=== PATIENT | male | born 1945 | race Caucasian/White ===

== ENCOUNTER 2020-04-11 11:02 | Inpatient (IN) | payer MEDICARE, SELFPAY ==
[2020-04-11] VITALS (22 sets, daily range): BP systolic 121–147; BP diastolic 66–88; PULSE 73–107; RESP 16–28; TEMP 35.9–39.1; O2SAT 93–99; BMI 24.4
--- NOTE | ~2020-04-11 | CT_ITS ---
EXAMINATION: CT cervical spine wo con DATE: 04/11/2020 19:36 INDICATION: Unwitnessed fall. Neck pain. TECHNIQUE: Computed tomography (CT) of the cervical spine was performed without intravenous contrast. The dose-length product was 474 mGy-cm. Automated exposure control and iterative reconstruction tech nique were employed. COMPARISON: None FINDINGS: There are degenerative changes at all cervical spine levels except C2-3 characterized by di sc narrowing, endplate hypertrophy as well as uncinate hypertrophy. There is right facet hypertrophy at C4-5. Lung apices are normal. Odontoid process is normal. No paraspinal soft tissue abnormality. N o acute fracture or traumatic malalignment. Small mastoid effusion on the left. There is carotid athe rosclerosis. IMPRESSION: 1. No acute abnormality of the cervical spine. 2: Moderate cervical spondylosis. Reviewed, dictated and finalized at location A. O PHOTOGRAPHER
--- NOTE | ~2020-04-11 | XR_ITS ---
EXAMINATION: XR chest 1V portable EXAM DATE: 04/11/2020 11:25 INDICATION: Muscle aches, shortness of breath, dizziness, COVID+. TECHNIQUE: Portable AP frontal chest x-ray was obtained. Comparison is made to prior examination from 12/04/2016. FINDINGS: Scattered mild to moderate amount of left-sided and smaller amount of right basilar acute a irspace disease, probably COVID pneumonia. There is no pneumothorax suspected. There are no pleural e ffusions. Cardiomediastinal silhouette is normal. There are mild bony degenerative changes. IMPRESSION: Small to moderate left, small right basilar acute airspace disease, clinical correlation . Reviewed, dictated and finalized at location A. OR MAINTENANCE TECHNICIAN IMPRESSION: Small to moderate left, small right basilar acute airspace disease , clinical correlation.
--- NOTE | ~2020-04-11 | XR_ITS ---
EXAMINATION: XR chest 1V portable DATE: 04/13/2020 06:20 INDICATION: Pneumonia TECHNIQUE: frontal view of the chest was obtained. COMPARISON: Chest radiograph dated 04/11/2020 FINDINGS: No significant change in airspace opacities in the left mid and lower lung zones that the medial righ t mid and lower lung zones. No pleural effusion or pneumothorax. The cardiomediastinal silhouette is normal. 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 IMPRESSION: 1. No significant interval change in opacities in the bilateral mid and lower lung zones, left greate r than right represent pneumonia and/or atelectasis. Reviewed, dictated and finalized at location A. CLEANER IMPRESSION: 1. No significant interval change in opacities in the bilateral mid and lower l philipp zones, left greater than right represent pneumonia and/or atelectasis.
--- NOTE | ~2020-04-11 | CT_ITS ---
EXAMINATION: CT brain wo con DATE: 04/11/2020 19:36 INDICATION: Unwitnessed fall. TECHNIQUE: Computed tomography (CT) of the head was performed without intravenous contrast. The dose- length product was 605.33 mGy-cm. The mA was adjusted according to patient size. Iterative reconstruc tion technique was employed. COMPARISON: None FINDINGS: Generalized atrophy. There are scattered mild periventricular and subcortical white matter changes, most likely related to small vessel ischemic disease (microangiopathy). Chronic left cerebel lar infarction. No acute intracranial hemorrhage, infarction, mass or mass effect. Paranasal sinuses and mastoids are pneumatized. No depressed skull fractures. Midline sagittal images are unremarkable. IMPRESSION: 1. No acute intracranial abnormality. 2: Chronic left cerebellar infarction. 3: Chronic age-related findings. Reviewed, dictated and finalized at location A. E CUTTING MACHINE OPERATOR
--- NOTE | 2020-04-11 11:12 | ECG_ITS ---
Measurements Intervals [place] Rate: 96 P: 42 MT: 155 QRS: 47 QRSD: 101 T: 25 QT: 320 QTc: 405 Interpretive Statements SINUS RHYTHM DELAYED PRECORDIAL R/S TRANSITION CONSIDER INFERIOR INFARCT, AGE INDETERMINATE BASELINE ARTIFACT- I, III, AVL, V2 ABNORMAL ECG Electronically Signed On 04-11-2020 15:07:33 FEED MIXER HELPER by Preston Ahumada D.O.
--- NOTE | 2020-04-11 11:12 | ED.SOB ---
HPI - SOB/Dyspnea General Chief Complaint: Unspecified Stated Complaint: covid +, sob Time Seen by Provider: 04/11/20 11:12 Source: patient Mode of arrival: ambulatory Limitations: no limitations History of Present Illness HPI Narrative: Patient is a 74-year-old male who presents for evaluation in the setting of a recent Covid positive test. Patient states that his family wanted him to get checked out. Patient states he was tested because he had been having muscle pain over the past week, noticed especially when he would awaken in the morning. Reports dry cough with mild chest pain and shortness of breath. He denies fever, chills, loss of sense of taste or smell, abdominal pain, vomiting or diarrhea. Patient is unsure who his sick contact was. Patient states that his children kept bothering him to go to the ER. Patient denies focal weakness, but states he is sore all over. He has been ambulatory, but states it is more difficult than normal for him because of the pain. Patient is not taking any anti-inflammatories. Pt states chest pain is dull, but has been present for a long time. He denies worsening chest pain today. He states he is mostly short of breath when he walks. He denies leg swelling or calf pain. Related Data Home Medications Medication Instructions Recorded Confirmed atorvastatin 04/11/20 04/11/20 metformin mg PO 04/11/20 tamsulosin mg PO 04/11/20 Allergies Allergy/AdvReac Type Severity Reaction Status Date / Time No Known Allergies Allergy Verified 04/11/20 11:50 Review of Systems Review of Systems: Narrative: CONSTITUTIONAL: Denies fever, chills, or sweats. EYES: Denies visual changes ENT: Denies rhinorrhea, congestion, sore throat, or otalgia. CARDIOVASCULAR: Denies chest pain, palpitations, or edema. RESPIRATORY: Reports dry cough without shortness of breath GASTROINTESTINAL: Denies abdominal pain, nausea, vomiting, or diarrhea. GENITOURINARY: Denies dysuria or hematuria. SKIN: Denies rash or itching. MUSCULOSKELETAL: Denies back pain, joint pain, reports myalgias NEUROLOGIC: Denies headache, numbness, or weakness. [facility] Past Medical History Medical History (Updated 04/11/20 @ 13:46 by Claribel Cerda PA-C) Benign prostatic hyperplasia Hyperlipidemia Hypertension Prostate cancer (~2007) Type 2 diabetes mellitus Surgical History Surgical History (Updated 04/11/20 @ 13:35 by Claribel Cerda PA-C) History of prostatectomy (~2007) Family History Family History (Updated 04/11/20 @ 13:35 by Claribel Cerda PA-C) Father Coronary artery disease Social History Social History (Updated 04/11/20 @ 13:36 by Claribel Cerda PA-C) Social History: The patient lives alone in [place], [place]. Lifelong nonsmoker. No alcohol or illicit substance use. Exam Narrative: Exam Narrative: GENERAL: Awake, alert, conversant HEAD: Normocephalic, atraumatic. EYES: PERRLA and EOMI. ENT: Nares clear, no rhinorrhea or epistaxis. Mucous membranes moist. NECK: Supple. CHEST: No respiratory distress, breathing even and non labored, no chest wall pain HEART: Regular rate, sinus rhythm ABDOMEN:Non distended, non tender in all 4 quadrants EXTREMITIES: Normal range of motion. No edema. SKIN: Warm, dry, no rash. NEURO:No focal deficits. Alert and oriented x3 Course Vital Signs Vital signs: Vital Signs Pulse Rate 106 H 04/11/20 11:11 Respiratory Rate 23 H 04/11/20 11:11 Blood Pressure 141/83 H 04/11/20 11:11 Pulse Oximetry 96 04/11/20 11:11 Temperature 36.5 C 04/11/20 11:13 Pulse Rate 97 04/11/20 11:46 Respiratory Rate 22 H 04/11/20 11:46 Blood Pressure 126/80 04/11/20 11:46 Pulse Oximetry 96 04/11/20 11:46 MDM - SOB/Dyspnea MDM Narrative Medical decision making narrative: Patient presented for evaluation of muscle pain, chest pain, shortness of breath with exertion in the setting of a known Covid infection. The time of assessment, patient
[2020-04-11 11:37] LABS: Basophils Percent Auto 0.1 % (0.2-1.2); Hematocrit 46.3 % (42.0-52.0); Hemoglobin 16.1 g/dL (14.0-18.0); Immature Granulocyte Absolute 0.06 K/mm3 (0.00-0.031); Immature Granulocyte Percent A 0.6 % (0-0.5); Lymphocytes Percent Auto 6.5 % (18.3-44.2); Mean Corpuscular HGB Conc 34.8 g/dl (32-36); Mean Corpuscular Hemoglobin 30.8 pg (26-34); Mean Corpuscular Volume 88.7 fl (80-100); Mean Platelet Volume 10.4 fl (7.4-10.4); Monocytes Absolute Auto 0.6 K/mm3 (0.1-0.6); Monocytes Percent Auto 5.8 % (2.6-8.5); Neutrophils Absolute Auto 9.4 K/mm3 (1.3-6.7); Platelet Count Result 262 k/mm3 (150-375); Red Blood Count 5.22 M/mm3 (4.6-6.20); Red Cell Distribution Width 13.5 % (11.5-14.5); White Blood Count 10.8 K/mm3 (4.5-10.0)
[2020-04-11 11:47] LABS: Prothrombin Time 13.3 Seconds (11.1-14.7)
[2020-04-11 11:48] LABS: Partial Thromboplastin Time 33.1 SECONDS (22.3-36.8)
[2020-04-11 12:14] LABS: Alanine Aminotransferase 28 U/L (4-50); Albumin Level 3.6 g/dL (3.5-5.1); Alkaline Phosphatase 103 U/L (38-126); Anion Gap 12 mmol/L (8-16); Aspartate Amino Transferase 90 U/L (17-59); Bilirubin,Total 1.2 mg/dL (0.2-1.3); Blood Urea Nitrogen 30 mg/dL (9-20); Calcium 9.2 mg/dL (8.4-10.2); Carbon Dioxide 20 mmol/L (22-30); Chloride 103 mmol/L (98-107); Estimated CRCL calculation 46 ml/min; Estimated Glomerular Filt Rate 54; Glucose 137 mg/dL (75-110); Potassium 4.5 mmol/L (3.4-5.0); Sodium 135 mmol/L (137-145)
[2020-04-11 12:29] LABS: NT Pro B Type Natriuretic Pept 162 PG/ML (5-100); Troponin I 0.037 ng/mL (0.000-0.034)
[2020-04-11 13:16] LABS: Creatine Kinase 2406 U/L (55-170)
--- NOTE | 2020-04-11 13:17 | PC.NURSE ---
SBAR faxed to room.
--- NOTE | 2020-04-11 13:59 | PC.NURSE ---
Attempt to call report to IMU. Per Linda RN is unavailable to get report at the moment, she is looking at the SBAR.
--- NOTE | 2020-04-11 14:20 | PC.NURSE ---
Addendum entered by Albert Adams RN 04/11/20 14:55: Pt given blankets for comfort. Oral temp 98.1. Original Note: In to start IVF, note that the patient has involuntary tremors, states I get like this when I'm cold . Note pt is incontinent of urine. Pt states I forgot there was a call her there . Pt remains A/O x3.
[2020-04-11] MEDS: SODIUM CHLORIDE 0.9% IV 1,000 ML 999 ML IV CONT (14:29)
--- NOTE | 2020-04-11 14:30 | PC.NURSE ---
Report to Romina in IMU, requests that troponin be drawn prior to the patient coming to the floor.
[2020-04-11 14:55] LABS: Glucose Point of Care 109 (65-105)
--- NOTE | 2020-04-11 15:28 | ADMGEN ---
This patient, Tucker Rosado, was admitted to IMU Room 213-01 on 04/11/2020 at 1511. Patient/family oriented to hospital policies and general routines including ID bracelet, bed and alarms, visiting hours, pain management, procedures, bathroom and other care routines, personal items, smoking policy, room service/diet, and visiting hours. Information on how to activate the Rapid Response Team has been discussed. Patient/Family are encouraged to report perceived risks to care and to ask questions if they do not understand what they are told or what they should do. Report received from Albert MATTHEWS in ED.
--- NOTE | 2020-04-11 15:30 | PM.IMHP ---
H&P: HPI History of Present Illness Date/Time: 04/11/20 15:30 Chief Complaint: ?COVID positive.? Narrative: Tucker Rosado is a 74-year-old male with hypertension, hyperlipidemia, diabetes, benign prostatic hyperplasia, and history of prostate cancer who presented to the emergency department earlier today via private vehicle from home because his family members wanted him ?to get checked out? after he was informed that he was COVID positive today. He has had symptoms for about a week including dry cough, shortness of breath, and diffuse muscle aches, which seems to be his most predominant symptom. Workup in the emergency department did show findings of pneumonia felt to be associated to COVID as well as a slight troponin elevation and elevated total CK level. He was admitted to the IMU in this setting, and not long prior to my arrival to the room he was found sitting down on the floor, reporting to the nurse that he had lost his balance and fell onto his buttocks. Family members report he has had ?trouble walking a straight line down the hallway? for approximately 1 month however has not had any falls prior to today. He denies injury in the fall and states there was no head trauma or loss of consciousness. On exam I did not see any injuries. He denies feeling feverish however his temperature is currently 102.3, and he seems to be a bit confused (consistently trying to get a bed) yet he is alert and oriented x4. He denies headache, neck ache, sinus congestion, sore throat, nausea, vomiting, and diarrhea. Review of Systems Review of Systems: Narrative: Twelve systems were reviewed with pertinent positives and negatives as per HPI. No known exposure to COVID-19. He apparently lives at home with his children and he states that they have not been ill. No chest pain or pleuritic pain. He denies anosmia and dysgeusia. Except as documented, all other systems were reviewed and are negative. [facility] Past Medical History Medical History (Updated 04/11/20 @ 22:17 by Claribel Cerda PA-C) Benign prostatic hyperplasia Hyperlipidemia Hypertension Prostate cancer (~2007) Type 2 diabetes mellitus Hemoglobin was 6 0.4% on 04/11/2020. Surgical History Surgical History (Updated 04/11/20 @ 13:35 by Claribel Cerda PA-C) History of prostatectomy (~2007) Family History Family History Father Coronary artery disease Social History Social History (Updated 04/11/20 @ 22:17 by Claribel Cerda PA-C) Social History: The patient lives in [place], [place]. He tells me he lives with his children. Retired from working for the [employer] for 41 years. Lifelong nonsmoker. No alcohol or illicit substance use. His daughter Мария Medina is his healthcare power of admitted attorneys and he is listed as a full code. Smoking status: Never smoker Second hand tobacco smoke exposure: No Alcohol intake: never Substance use: never Gender identity (if verbalized by the patient): Male Spiritual care concerns: No Meds Home Medications and Allergies Home Medications Medication Instructions Recorded Confirmed Type atorvastatin 20 mg PO HS 04/11/20 04/11/20 History metformin 500 mg PO TID 04/11/20 04/11/20 History tamsulosin 0.4 mg PO HS 04/11/20 04/11/20 History Allergies Allergy/AdvReac Type Severity Reaction Status Date / Time No Known Allergies Allergy Verified 04/11/20 16:27 Vital Signs Vital Signs - 24 hr 04/11/20 11:11 04/11/20 11:13 04/11/20 11:16 Temperature 97.7 F Pulse Rate 106 H 95 96 Respiratory Rate 23 H 22 H 25 H Blood Pressure 141/83 H 141/83 H 136/73 Pulse Oximetry 96 95 04/11/20 11:17 04/11/20 11:31 04/11/20 11:46 Temperature Pulse Rate 97 97 97 Respiratory Rate 25 H 22 H Blood Pressure 121/87 126/80 Pulse Oximetry 96 Exam Narrative: Exam Narrative: General: Mildly ill-appearing elderly male sitting up in bed. Inez
[2020-04-11 16:31] LABS: Hemoglobin A1C 6.4 % (<5.7)
[2020-04-11 16:55] LABS: CRP 8.2 mg/dL (<1.0)
[2020-04-11 17:06] LABS: Glucose Point of Care 109 (65-105)
[2020-04-11 18:34] LABS: Creatine Kinase 2332 U/L (55-170)
[2020-04-11] MEDS: SODIUM CHLORIDE 0.9% IV 1,000 ML 80 ML IV CONT (18:39)
[2020-04-11] MEDS: ACETAMINOPHEN 325 MG TABLET 650 MG PO (20:09)
[2020-04-11 20:22] LABS: Glucose Point of Care 121 (65-105)
[2020-04-11 21:47] LABS: Add Urine Microscopic? YES; Appearance Urine Clear (Clear); Bacteria Urine Trace /hpf; Bilirubin Urine Negative (Negative); Blood Urine 1+ (Negative); Color Urine Yellow (Yellow); Glucose Urine UA Negative (Negative); Ketones Urine Trace mg/dL (Negative); Leukocyte Esterase Ur Negative LEU/UL (Negative); Mucus Urine Rare /lpf; Nitrate Urine Negative (Negative); Protein Urine 2+ mg/dL (Negative); RBC Urine 0-2 /hpf (0-2); Specific Grav Ur 1.018 (1.001-1.035); Urobilinogen Urine Negative mg/dL (<2.0); WBC Urine 0-3 /hpf
[2020-04-11] MEDS: TAMSULOSIN HCL 0.4 MG CAPSULE PO (21:54)
[2020-04-12] VITALS (9 sets, daily range): BP systolic 121–152; BP diastolic 68–80; PULSE 70–96; RESP 12–20; TEMP 35.9–37.4; O2SAT 94–98
[2020-04-12 06:12] LABS: Hematocrit 38.7 % (42.0-52.0); Hemoglobin 13.6 g/dL (14.0-18.0); Mean Corpuscular HGB Conc 35.1 g/dl (32-36); Mean Corpuscular Hemoglobin 31.2 pg (26-34); Mean Corpuscular Volume 88.8 fl (80-100); Mean Platelet Volume 11.4 fl (7.4-10.4); Platelet Count Result 234 k/mm3 (150-375); Red Blood Count 4.36 M/mm3 (4.6-6.20); Red Cell Distribution Width 13.6 % (11.5-14.5); White Blood Count 8.8 K/mm3 (4.5-10.0)
[2020-04-12 06:13] LABS: Alanine Aminotransferase 27 U/L (4-50); Albumin Level 3.1 g/dL (3.5-5.1); Alkaline Phosphatase 86 U/L (38-126); Anion Gap 9 mmol/L (8-16); Aspartate Amino Transferase 83 U/L (17-59); Bilirubin,Total 0.9 mg/dL (0.2-1.3); Blood Urea Nitrogen 28 mg/dL (9-20); Calcium 8.4 mg/dL (8.4-10.2); Carbon Dioxide 19 mmol/L (22-30); Chloride 108 mmol/L (98-107); Creatine Kinase 2024 U/L (55-170); Estimated CRCL calculation 54 ml/min; Estimated Glomerular Filt Rate > 60; Glucose 106 mg/dL (75-110); Magnesium 2.4 mg/dL (1.6-2.3); Sodium 136 mmol/L (137-145)
[2020-04-12] MEDS: ASPIRIN 81 MG CHEWABLE TABLET PO (08:20)
--- NOTE | 2020-04-12 08:37 | PM.IMPN ---
Progress Note: A&P Assessment and Plan (1) Pneumonia due to COVID-19 virus: Code(s): U07.1 - COVID-19; J12.89 - Other viral pneumonia Status: Acute (2) Rhabdomyolysis: Code(s): M62.82 - Rhabdomyolysis Status: Acute (3) Elevated troponin: Code(s): R77.8 - Other specified abnormalities of plasma proteins Status: Acute (4) Hypertension: Code(s): I10 - Essential (primary) hypertension Status: Acute (5) Hyperlipidemia: Code(s): E78.5 - Hyperlipidemia, unspecified Status: Acute (6) Type 2 diabetes mellitus: Code(s): E11.9 - Type 2 diabetes mellitus without complications Status: Acute (7) Benign prostatic hyperplasia: Code(s): N40.0 - Benign prostatic hyperplasia without lower urinary tract symptoms Status: Acute Additional Plan The patient is being admitted to the hospitalist service for evaluation of elevated troponin and creatinine kinase. He has had muscle aches for a week and tested positive for COVID-19 today and I assume he probably has developed rhabdomyolysis secondary to viral myopathy. At this time his renal function is stable. Proceed with cautious IV fluid rehydration with close monitoring of volume status as we do not want to over hydrate him in the setting of COVID infection. So too I am assuming that his troponins are elevated in the setting of COVID as he is not having any chest pain. Trend troponins to peak and obtain echocardiogram. Blood pressures were reviewed and they are stable. Metformin on hold while hospitalized. Initiate sliding scale insulin, Accu-Cheks, and hypoglycemic protocol. Check hemoglobin A1c. Will continue current treatment at present time. Will repeat chest x-ray. Will repeat CPK and troponin. Will start IV antibiotics. Subjective Date/time seen: 04/12/20 08:37 Patient was seen during the morning rounds today. Patient has by shortness of breath. Patient denies any chest pain. Patient denies any nausea vomiting or diarrhea. Patient is requiring very little oxygen. Mood stable. Review of Systems Review of Systems: All systems reviewed & are unremarkable except as noted in HPI and below (the history and physical exam) Exam Narrative: Exam Narrative: General: Mildly ill-appearing elderly male sitting up in bed. Weight: 79.5 kg. BMI: 24.4. HEENT: Normocephalic, atraumatic. PERRL, EOMI. Sclerae anicteric. Mucous membranes tacky. Neck: Supple. No JVD. Respiratory: Lungs are clear to auscultation bilaterally. Cardiovascular: Regular rate and rhythm with S1-S2. Gastrointestinal: Abdomen is soft, nontender, and nondistended with positive bowel sounds. Skin: Warm and dry. Red patch in the right antecubital. Extremities: No cyanosis, clubbing, or edema. Radial and pedal pulses intact. Neurological: Alert and oriented x4. Cranial nerves 2-12 are grossly intact. Fine tremors of the hands, which he states is chronic. Speech is clear. No facial asymmetry. No gross focal deficits to casual conversation. Patient was assisted to the bed after he was helped up from the floor, and he required 2 person assistance and was unsteady on his feet. Psychiatric: Pleasant and cooperative. Although alert and oriented he seems to be a bit a bit confused and restless as he continues to attempt to get out of bed despite instructions otherwise. Objective Data Vital Signs Vital Signs: Vital Signs - 24 hr 04/11/20 11:11 04/11/20 11:13 04/11/20 11:16 Temperature 36.5 C Pulse Rate 106 H 95 96 Respiratory Rate 23 H 22 H 25 H Blood Pressure 141/83 H 141/83 H 136/73 Pulse Oximetry 96 95 04/11/20 11:17 04/11/20 11:31 04/11/20 11:46 Temperature Pulse Rate 97 97 97 Respiratory Rate 25 H 22 H Blood Pressure 121/87 126/80 Pulse Oximetry 96 04/11/20 12:01 04/11/20 12:16 04/11/20 12:31 Temperature Pulse Rate 95 96 95 Respiratory Rate 23 H 23 H 23 H Blood Pressure 132/78 126/77 124/81 Puls
[2020-04-12] MEDS: ENOXAPARIN 40 MG/0.4 ML SYRINGE SUB-Q (09:22)
[2020-04-12] MEDS: ZINC SULFATE 220 MG CAPSULE PO (09:22)
[2020-04-12 10:49] LABS: Lactate Dehydrogenase 1137 U/L (313-618)
[2020-04-12 10:58] LABS: Creatine Kinase 2274 U/L (55-170)
[2020-04-12 11:38] LABS: Creatine Kinase 1304 U/L (55-170)
[2020-04-12 13:14] LABS: Glucose Point of Care 136 (65-105)
--- NOTE | 2020-04-12 14:32 | ECHO_ITS ---
Patient Info Name: Tucker Rosado Age: 74 years : 1945 Gender: Male Ht: 71 in Wt: 176 lbs BSA: 2.01 m2 HR: 78 bpm BP: 126 / 72 mmHg Technical Quality: Fair Exam Date: 04/12/2020 11:54 AM Exam Location: [facility] Pulmonary Patient Status: Inpatient Admit Date: 04/12/2020 Staff Ordering Physician: Claribel Cerda PA-C [facility] [employer] [facility] Director: Brittany Alan RDCS Attending Provider: La Campuzano MD Referring Physician: Prashant MOONEY; Exam Type: CA echo doppler color flow Study Info Indications I10 - Essential (primary) hypertension - covid 19 infection - elevated troponin Complete two-dimensional, color flow and Doppler transthoracic echocardiogram is performed. Summary 1. Complete two-dimensional, color flow and Doppler transthoracic echocardiogram is performed. 2. Left ventricular systolic function is mildly reduced, estimated at 45-50%. 3. The left ventricular diastolic function is grade I diastolic dysfunction. 4. There is mild tricuspid valve stenosis. 5. No pulmonary hypertension, estimated pulmonary arterial systolic pressure is 30 mmHg. 6. Hypokinesis of inferoseptum. Left Ventricle Left ventricular chamber dimension is normal. Left ventricular systolic function is mildly reduced, estimated at 45-50%. There is no increased left ventricular wall thickness. Left ventricular septal wall motion is normal. The left ventricular diastolic function is grade I diastolic dysfunction. Right Ventricle Right ventricular chamber dimension is normal. Right ventricular systolic function is normal. Left Atria Left atrial chamber dimension is normal. Right Atria Right atrial chamber dimension is normal. Atrial Septum Intact interatrial septum visualized by color flow imaging. Aortic Valve The aortic valve is not well visualized. There is no aortic valve sclerosis. There is no aortic valve stenosis. There is no aortic valve regurgitation. Pulmonic Valve The pulmonic valve is normal. There is no pulmonic valve stenosis. There is no pulmonic regurgitation. Mitral Valve The mitral valve has normal leaflets. There is no mitral valve stenosis. There is no mitral valve regurgitation. Tricuspid Valve The tricuspid valve leaflets are normal. There is mild tricuspid valve stenosis. There is no tricuspid valve regurgitation. No pulmonary hypertension, estimated pulmonary arterial systolic pressure is 30 mmHg. Pericardium/Pleural The pericardium appears normal. There is no pericardial effusion. Inferior Vena Cava Normal inferior vena cava with >50% collapse upon inspiration consistent with elevated right atrial pressure, 10 mmHg. Aorta The aortic root size at the sinus of Valsalva is normal. The prox ascending aorta size is normal. Left Ventricular Outflow Tract Name Value Normal LVOT 2D LVOT Diameter 1.9 cm LVOT Doppler LVOT Peak Gradient 2 mmHg LVOT Mean Gradient 1 mmHg LVOT VTI 12 cm LVOT VTI/AV VTI Ratio 0.9 LVOT Stro
[2020-04-12 16:40] LABS: Glucose Point of Care 93 (65-105)
[2020-04-12] MEDS: TAMSULOSIN HCL 0.4 MG CAPSULE PO (21:30)
[2020-04-13 05:18] LABS: Alanine Aminotransferase 32 U/L (4-50); Albumin Level 2.9 g/dL (3.5-5.1); Alkaline Phosphatase 86 U/L (38-126); Anion Gap 7 mmol/L (8-16); Aspartate Amino Transferase 73 U/L (17-59); Bilirubin,Total 0.7 mg/dL (0.2-1.3); Blood Urea Nitrogen 23 mg/dL (9-20); Calcium 8.6 mg/dL (8.4-10.2); Carbon Dioxide 20 mmol/L (22-30); Chloride 111 mmol/L (98-107); Estimated CRCL calculation 64 ml/min; Estimated Glomerular Filt Rate > 60; Glucose 108 mg/dL (75-110); Sodium 138 mmol/L (137-145)
[2020-04-13 05:23] LABS: Troponin I 0.018 ng/mL (0.000-0.034)
[2020-04-13 05:39] LABS: Creatine Kinase 746 U/L (55-170)
[2020-04-13 07:59] LABS: Glucose Point of Care 115 (65-105)
[2020-04-13 08:00] VITALS: BP 132/85; PULSE 81; RESP 12; TEMP 36.2; O2SAT 95
[2020-04-13] MEDS: ASPIRIN 81 MG CHEWABLE TABLET PO (09:36)
[2020-04-13] MEDS: ZINC SULFATE 220 MG CAPSULE PO (09:37)
[2020-04-13] MEDS: ENOXAPARIN 40 MG/0.4 ML SYRINGE SUB-Q (09:37)
[2020-04-13 12:43] LABS: Glucose Point of Care 162 (65-105)
[2020-04-13 12:54] VITALS: BP 127/79; PULSE 87; RESP 12; TEMP 36.6; O2SAT 95
--- NOTE | 2020-04-13 14:43 | PC.NURSE ---
This patient, Tucker Rosado, was received from [ imu] on 04/13/20 at 1443. Patient/family oriented to unit policies and routines. Report received from Ami.
--- NOTE | 2020-04-13 14:45 | PC.NURSE ---
This patient, Tucker Rosado, was transferred to [[facility] ] on 04/13/20 at 1436. Personal belongings sent with patient. Report given to [Romina ]. Appropriate documentation sent with patient.
--- NOTE | 2020-04-13 15:30 | PM.IMPN ---
Progress Note: A&P Assessment and Plan (1) Pneumonia due to COVID-19 virus: Code(s): U07.1 - COVID-19; J12.89 - Other viral pneumonia Status: Acute (2) Rhabdomyolysis: Code(s): M62.82 - Rhabdomyolysis Status: Acute (3) Elevated troponin: Code(s): R77.8 - Other specified abnormalities of plasma proteins Status: Acute (4) Hypertension: Code(s): I10 - Essential (primary) hypertension Status: Acute (5) Hyperlipidemia: Code(s): E78.5 - Hyperlipidemia, unspecified Status: Acute (6) Type 2 diabetes mellitus: Code(s): E11.9 - Type 2 diabetes mellitus without complications Status: Acute (7) Benign prostatic hyperplasia: Code(s): N40.0 - Benign prostatic hyperplasia without lower urinary tract symptoms Status: Acute Subjective Date/time seen: 04/13/20 15:30 Interval history: Alonzo is a 74-year-old male with hypertension, hyperlipidemia, diabetes, benign prostatic hyperplasia, and history of prostate cancer, covid positive for 5 days. Doing well on RA. Phoned MONTY Medina. He is doing not on oxygen, CK 746 today. cxr pneumonia iv abx. Pt lives in [place] on his children his daughter and son. Review of Systems Review of Systems: All systems reviewed & are unremarkable except as noted in HPI and below Exam Narrative: Exam Narrative: General: elderly tired weak HEENT: Normocephalic Neck: Supple. No JVD. Respiratory: normal effort Cardiovascular: Regular rate and rhythm with S1-S2. Gastrointestinal: Abdomen is soft, nontender, and nondistended with positive bowel sounds. Skin: Warm and dry. Red patch in the right antecubital. Extremities: No cyanosis, clubbing, or edema. Radial and pedal pulses intact. Neurological: Alert and oriented x4. Cranial nerves 2-12 are grossly intact. Fine tremors of the hands, which he states is chronic. speech clear Psychiatric: Pleasant and cooperative. Objective Data Vital Signs Vital Signs: Vital Signs - 24 hr 04/12/20 16:00 04/12/20 20:00 04/12/20 23:57 Temperature 37.2 C 37.4 C Pulse Rate 77 77 96 Respiratory Rate 16 Blood Pressure 152/78 H 136/70 Pulse Oximetry 97 97 94 04/13/20 08:00 04/13/20 12:54 Temperature 36.2 C L 36.6 C Pulse Rate 81 87 Respiratory Rate 12 12 Blood Pressure 132/85 127/79 Pulse Oximetry 95 95 Intake/Output Intake/Output: Intake & Output 04/10/20 04/11/20 04/12/20 04/13/20 23:59 23:59 23:59 23:59 Intake Total 240 2030 780 Output Total 150 550 950 Balance 90 1480 -170 Meds/Results Medications: Active Medications Generic Name Dose Route Start Last Admin Trade Name Freq PRN Reason Stop Dose Admin Acetaminophen 650 mg 04/11/20 18:42 04/11/20 20:09 Acetaminophen 325 Mg Tablet PO 650 mg Q6H PRN Administration Mild Pain (1-3) or Fever Aspirin 81 mg 04/12/20 08:00 04/13/20 09:36 Aspirin 81 Mg Chewable Tablet PO 81 mg DAILY@0800 THOMAS Administration Dextrose 12.5 gm 04/11/20 14:30 Dextrose 50% 25 Gm/50 Ml Syringe IV PUSH PRN PRN Hypoglycemia Protocol Enoxaparin Sodium 40 mg 04/12/20 09:00 04/13/20 09:37 Enoxaparin 40 Mg/0.4 Ml Syringe SUB-Q 40 mg DAILY THOMAS Administration Glucagon 1 mg 04/11/20 14:30 Glucagon For Inj 1 Mg Vial IM PRN PRN Hypoglycemia Protocol Glucose 15 gm 04/11/20 14:30 Glucose Oral Gel 15 Gm Of Glucse In 37.5 Gm Tube PO PRN PRN Hypoglycemia Protocol Dextrose 1,000 mls @ 100 mls/hr 04/11/20 14:30 Dextrose 5% 1,000 Ml IVPB PRN PRN Hypoglycemia Protocol Ceftriaxone Sodium/Dextrose 1 gm in 50 mls @ 100 mls/hr 04/12/20 09:00 04/13/20 09:36 Rocephin 1 Gm/D5w 50 Ml IVPB Infused Q24H THOMAS Infusion Azithromycin 250 mg/ Dextrose 250 mls @ 250 mls/hr 04/12/20 09:00 04/13/20 10:37 IVPB Infused Q24H THOMAS Infusion Insulin Aspart 2 - 5 units 04/11/20 17:00 04/13/20 14:0
[2020-04-13 16:00] VITALS: BP 133/77; PULSE 89; RESP 20; TEMP 36.1; O2SAT 95
[2020-04-13 17:19] LABS: Glucose Point of Care 158 (65-105)
[2020-04-13 20:00] VITALS: BP 148/89; PULSE 85; RESP 16; TEMP 36.6; O2SAT 94
[2020-04-13] MEDS: TAMSULOSIN HCL 0.4 MG CAPSULE PO (20:01)
[2020-04-13 21:13] LABS: Glucose Point of Care 129 (65-105)
[2020-04-14] VITALS: BP 148/87; PULSE 78; RESP 18; TEMP 36.5; O2SAT 94
[2020-04-14 04:00] VITALS: BP 129/83; PULSE 69; RESP 18; TEMP 36.4; O2SAT 97
[2020-04-14 06:39] LABS: Anion Gap 6 mmol/L (8-16); Blood Urea Nitrogen 20 mg/dL (9-20); Calcium 8.8 mg/dL (8.4-10.2); Carbon Dioxide 21 mmol/L (22-30); Chloride 113 mmol/L (98-107); Estimated CRCL calculation 59 ml/min; Estimated Glomerular Filt Rate > 60; Glucose 116 mg/dL (75-110); Potassium 4.1 mmol/L (3.4-5.0); Sodium 140 mmol/L (137-145)
[2020-04-14 07:13] LABS: Creatine Kinase 314 U/L (55-170)
[2020-04-14 08:00] VITALS: BP 137/79; PULSE 76; RESP 18; TEMP 36.7; O2SAT 95
[2020-04-14] MEDS: ENOXAPARIN 40 MG/0.4 ML SYRINGE SUB-Q (08:08)
[2020-04-14] MEDS: ASPIRIN 81 MG CHEWABLE TABLET PO (08:08)
[2020-04-14] MEDS: ZINC SULFATE 220 MG CAPSULE PO (08:08)
[2020-04-14 08:14] LABS: Glucose Point of Care 114 (65-105)
[2020-04-14 12:00] VITALS: BP 123/79; PULSE 88; RESP 18; TEMP 37.1; O2SAT 94
[2020-04-14 12:30] LABS: Glucose Point of Care 141 (65-105)
--- NOTE | 2020-04-14 13:57 | PM.DS ---
DS: Admitting Diagnosis Admitting Diagnosis Admitting Diagnosis: COVID POSITIVE DS: Discharge Diagnosis Discharge Diagnosis (1) Pneumonia due to COVID-19 virus: Code(s): U07.1 - COVID-19; J12.89 - Other viral pneumonia Status: Acute Assessment and Plan: Treated supportively also treated for bacterial pneumonia with iv ABX. (2) Rhabdomyolysis: Code(s): M62.82 - Rhabdomyolysis Status: Resolved Assessment and Plan: After hydration (3) Elevated troponin: Code(s): R77.8 - Other specified abnormalities of plasma proteins Status: Resolved Assessment and Plan: Secondary to rhabdo and covid pneumonia (4) Hypertension: Code(s): I10 - Essential (primary) hypertension Status: Chronic Assessment and Plan: Continue medications (5) Hyperlipidemia: Code(s): E78.5 - Hyperlipidemia, unspecified Status: Chronic Assessment and Plan: Continue medications (6) Type 2 diabetes mellitus: Code(s): E11.9 - Type 2 diabetes mellitus without complications Status: Chronic Assessment and Plan: Continue medications (7) Benign prostatic hyperplasia: Code(s): N40.0 - Benign prostatic hyperplasia without lower urinary tract symptoms Status: Chronic Assessment and Plan: Continue medications DS: Summary Hospital Course Hospital Course: Alonzo is a 74-year-old male with hypertension, hyperlipidemia, diabetes, benign prostatic hyperplasia, and history of prostate cancer, covid positive for 5 days. Doing well on room air. Phoned MONTY Medina. Pt is not needing oxygen, CK 746 today. cxr- shows pneumonia Pt has also been treated with iv abx. Pt lives in [place] on his children his daughter and son. Time Spent with Patient Time attestation: Total time spent providing and/or coordinating discharge services:40 minutes on day of dischrage Exam Narrative: Exam Narrative: General: elderly tired weak HEENT: Normocephalic Neck: Supple. No JVD. Respiratory: normal effort Cardiovascular: Regular rate and rhythm with S1-S2. Gastrointestinal: Abdomen is soft, nontender, and nondistended with positive bowel sounds. Skin: Warm and dry. Extremities: No cyanosis, clubbing, or edema. Radial and pedal pulses intact. Neurological: Alert and oriented x4. Cranial nerves 2-12 are grossly intact. Fine tremors of the hands, which he states is chronic. speech clear Psychiatric: Pleasant and cooperative. DS: Data Data Completed and Pending Labs on day of discharge: Labs from last 24 hours 04/14/20 04/14/20 04/14/20 12:27 07:47 06:06 Sodium 140 Potassium 4.1 Chloride 113 H Carbon Dioxide 21 L Anion Gap 6 L BUN 20 Creatinine 1.00 Estim Creat Clear Calc 59 Estimated GFR > 60 Glucose 116 H POC Capillary Glucose 141 H 114 H Calcium 8.8 Total Creatine Kinase 04/14/20 04/13/20 04/13/20 06:06 20:00 17:13 Sodium Potassium Chloride Carbon Dioxide Anion Gap BUN Creatinine Estim Creat Clear Calc Estimated GFR Glucose POC Capillary Glucose 129 H 158 H Calcium Total Creatine Kinase 314 H Discharge Plan Discharge Attending physician on discharge: Michaelle Gonzalez Consulting providers: Claribel Cerda ; Ernst Emerson ; Haris Fernandez ; Markie Duong ; Ke Cannon ; Preston Ahumada ; Cliff Archer Discharging Clinician: Michaelle Gonzalez Anticipated Discharge Date/Time: 04/14/20 13:51 Patient Disposition: Home, Self-Care Activity: as tolerated Diet: diabetic Discharge Instructions: SOCIAL DISTANCING, WEAR MASK, QUARANTINE FOR ANOTHER 9 days Patient Instructions: Antibiotic Form, Shortness of Breath (DC), COVID-19 (Coronavirus Disease 2019) (DC) Stand Alone Forms: General Discharge Information Follow-up/Referrals: Angelo,MD Blaine [Primary Care Provider] - (in 3-4 weeks time
== END 2020-04-14 14:50 | disposition home or self-care (01) | DRG 177 ==
LOC: ANHED 11:28 → ANHIMU 13:20 → ANH3MEDSUR 04-13 15:27 → ANHIMU 04-20 15:34
PROVIDERS: Internal Medicine; Physician Assistant; Admitting Provider Family Medicine; Emergency Provider Emergency Medicine; PCP Internal Medicine; Visit Provider Family Medicine
DX: U07.1 COVID-19 (principal); J12.89 Other viral pneumonia; M62.82 Rhabdomyolysis; G72.89 Other specified myopathies; R79.89 Other specified abnormal findings of blood chemistry; I10 Essential (primary) hypertension; E78.5 Hyperlipidemia, unspecified; E11.9 Type 2 diabetes mellitus without complications; N40.0 Benign prostatic hyperplasia without lower urinary tract symptoms; Z85.46 Personal history of malignant neoplasm of prostate
CPT/HCPCS: 36415; 70450; 71045; 72125; 80048; 80053; 81001; 82550; 82728; 82948; 83036; 83615; 83735; 83880; 84484; 85025; 85027; 85610; 85730; 86140; 93005; 93306; 96361; 96365; 96368; 96372; 97110; 97116; 97161; 97165; 97530; 97535; 99285; A9270; G0378; J0456; J0696; J1650; J7030; J7060

== ENCOUNTER 2021-09-01 08:25 | Outpatient (CLI) | payer MEDICARE, SELFPAY ==
[2021-09-01 09:25] LABS: Alanine Aminotransferase 16 U/L (6-50); Albumin Level 4.4 g/dL (3.5-5.1); Alkaline Phosphatase 90 U/L (38-126); Anion Gap 11 mmol/L (8-16); Aspartate Amino Transferase 25 U/L (17-59); Bilirubin,Total 1.8 mg/dL (0.2-1.3); Blood Urea Nitrogen 31 mg/dL (9-20); Calcium 9.1 mg/dL (8.4-10.2); Carbon Dioxide 23 mmol/L (22-30); Chloride 108 mmol/L (98-107); Estimated Glomerular Filt Rate 53; Glucose 118 mg/dL (65-110); Potassium 4.7 mmol/L (3.4-5.0); Sodium 142 mmol/L (137-145)
[2021-09-01 10:04] LABS: Hemoglobin A1C 6.1 % (<5.7)
== END 2021-09-01 08:26 | disposition home or self-care (01) ==
LOC: ANHLAB 08:28
PROVIDERS: PCP Physician Assistant; Visit Provider Physician Assistant
DX: E11.9 Type 2 diabetes mellitus without complications (principal)
CPT/HCPCS: 36415; 80053; 83036

== ENCOUNTER 2022-03-07 09:37 | Outpatient (CLI) | payer MEDICARE, SELFPAY ==
[2022-03-07 10:04] LABS: Hematocrit 46.3 % (42.0-52.0); Hemoglobin 15.4 g/dL (14.0-18.0); Mean Corpuscular HGB Conc 33.3 g/dl (32-36); Mean Corpuscular Hemoglobin 31.4 pg (26-34); Mean Corpuscular Volume 94.3 fl (80-100); Mean Platelet Volume 10.8 fl (7.4-10.4); Platelet Count Result 210 k/mm3 (150-375); Red Blood Count 4.91 M/mm3 (4.6-6.20); White Blood Count 5.9 K/mm3 (4.5-10.0)
[2022-03-07 10:40] LABS: Hemoglobin A1C 6.6 % (<5.7)
[2022-03-07 11:44] LABS: Creatinine Urine 111.9 mg/dL
[2022-03-07 11:48] LABS: Microalbumin Urine Random 13.4 mg/L (0-16.7)
[2022-03-07 13:59] LABS: Alanine Aminotransferase 21 U/L (6-50); Albumin Level 4.4 g/dL (3.5-5.1); Alkaline Phosphatase 94 U/L (38-126); Anion Gap 8 mmol/L (8-16); Aspartate Amino Transferase 32 U/L (17-59); Bilirubin,Total 1.6 mg/dL (0.2-1.3); Blood Urea Nitrogen 35 mg/dL (9-20); Calcium 9.5 mg/dL (8.4-10.2); Carbon Dioxide 24 mmol/L (22-30); Chloride 107 mmol/L (98-107); Cholesterol 157 mg/dL (0-200); Estimated Glomerular Filt Rate 45; Glucose 136 mg/dL (65-110); HDL Direct 55 mg/dL; Potassium 5.3 mmol/L (3.4-5.0); Sodium 139 mmol/L (137-145); Triglycerides 87 mg/dL (<150)
[2022-03-07 14:09] LABS: LDL Cholesterol Direct 65 mg/dL
[2022-03-07 14:23] LABS: Prostate Specific Antigen < 0.1 ng/mL (< OR = 4.0)
[2022-03-07 16:12] LABS: Folic Acid 15.8 ng/mL (2.76->20)
== END 2022-03-07 09:38 | disposition home or self-care (01) ==
PROVIDERS: PCP Physician Assistant; Visit Provider Physician Assistant
DX: E11.9 Type 2 diabetes mellitus without complications (principal); R53.83 Other fatigue; Z12.5 Encounter for screening for malignant neoplasm of prostate
CPT/HCPCS: 36415; 80053; 80061; 82043; 82607; 82746; 83036; 84153; 84443; 85027; G0103

== ENCOUNTER 2022-09-02 08:52 | Outpatient (CLI) | payer MEDICARE, SELFPAY ==
[2022-09-02 09:40] LABS: Alanine Aminotransferase 21 U/L (6-50); Albumin Level 4.3 g/dL (3.5-5.1); Alkaline Phosphatase 87 U/L (38-126); Anion Gap 6 mmol/L (8-16); Aspartate Amino Transferase 24 U/L (17-59); Bilirubin,Total 1.6 mg/dL (0.2-1.3); Blood Urea Nitrogen 26 mg/dL (9-20); Calcium 9.1 mg/dL (8.4-10.2); Carbon Dioxide 25 mmol/L (22-30); Chloride 109 mmol/L (98-107); Estimated Glomerular Filt Rate 53; Glucose 113 mg/dL (65-110); Potassium 4.5 mmol/L (3.4-5.0); Sodium 140 mmol/L (137-145)
[2022-09-02 11:33] LABS: Hemoglobin A1C 6.4 % (<5.7)
== END 2022-09-02 08:53 | disposition home or self-care (01) ==
LOC: ANHLAB 08:54
PROVIDERS: PCP Physician Assistant; Visit Provider Physician Assistant
DX: E11.9 Type 2 diabetes mellitus without complications (principal)
CPT/HCPCS: 36415; 80053; 83036

== ENCOUNTER 2022-12-26 14:11 | Emergency (ER) | payer MEDICARE, SELFPAY ==
--- NOTE | ~2022-12-26 | XR_ITS ---
EXAMINATION: XR chest 2V Exam Date/Time: 12/26/2022 14:40 CDT HISTORY: SOB x2 months, only when moving arms Comparison: 04/13/2020. RESULT: Lines, tubes, and devices: None. Lungs and pleura: Left basilar scar. Mild senescent change. Otherwise clear. Cardiomediastinal silhouette: Stable. Other: No acute osseous or upper abdominal finding. IMPRESSION: No acute cardiopulmonary process. Reviewed, dictated and finalized at location K.
--- NOTE | 2022-12-26 14:12 | ECG_ITS ---
Measurements Intervals Adrian Rate: 96 P: 44 MT: 162 QRS: 90 QRSD: 139 T: 14 QT: 358 QTc: 455 Interpretive Statements SINUS RHYTHM RIGHT BUNDLE BRANCH BLOCK MINIMAL Q WAVES- INFERIOR LEADS ABNORMAL ECG COMPARED TO ECG 04/11/2020 11:43:43 RIGHT BUNDLE-BRANCH BLOCK NOW PRESENT Electronically Signed On 12-26-2022 14:35:24 CDT by Preston Ahumada D.O.
[2022-12-26 14:26] VITALS: BP 128/77; PULSE 104; RESP 18; TEMP 37.1; O2SAT 99
[2022-12-26 14:29] LABS: Basophils Percent Auto 0.5 % (0.2-1.2); Eosinophils Absolute Auto 0.7 K/mm3 (0-0.3); Hematocrit 44.7 % (42.0-52.0); Hemoglobin 14.8 g/dL (14.0-18.0); Immature Granulocyte Absolute 0.02 K/mm3 (0.00-0.031); Immature Granulocyte Percent A 0.3 % (0-0.5); Lymphocytes Absolute Auto 1.17 K/mm3 (0.9-3.2); Mean Corpuscular HGB Conc 33.1 g/dl (32-36); Mean Corpuscular Hemoglobin 31.4 pg (26-34); Mean Corpuscular Volume 94.9 fl (80-100); Mean Platelet Volume 10.9 fl (7.4-10.4); Monocytes Absolute Auto 0.5 K/mm3 (0.1-0.6); Monocytes Percent Auto 7.1 % (2.6-8.5); Neutrophils Absolute Auto 4.9 K/mm3 (1.3-6.7); Neutrophils Percent Auto 67.1 % (45.5-73.1); Platelet Count Result 203 k/mm3 (150-375); Red Blood Count 4.71 M/mm3 (4.6-6.20); Red Cell Distribution Width 14.4 % (11.5-14.5); White Blood Count 7.3 K/mm3 (4.5-10.0)
[2022-12-26 14:44] LABS: Alanine Aminotransferase 19 U/L (6-50); Albumin Level 4.5 g/dL (3.5-5.1); Alkaline Phosphatase 87 U/L (38-126); Anion Gap 7 mmol/L (8-16); Aspartate Amino Transferase 26 U/L (17-59); Bilirubin,Total 1.6 mg/dL (0.2-1.3); Blood Urea Nitrogen 20 mg/dL (9-20); Calcium 9.1 mg/dL (8.4-10.2); Carbon Dioxide 23 mmol/L (22-30); Chloride 109 mmol/L (98-107); Estimated CRCL calculation 44 ml/min; Estimated Glomerular Filt Rate 53; Glucose 139 mg/dL (65-110); Sodium 139 mmol/L (137-145)
[2022-12-26 17:46] VITALS: PULSE 71
[2022-12-26 17:47] VITALS: BP 169/92; PULSE 73; RESP 18; O2SAT 100
[2022-12-26 18:01] VITALS: BP 157/92; PULSE 69; RESP 22; O2SAT 99
--- NOTE | 2022-12-26 18:47 | ED.SOB ---
HPI - SOB/Dyspnea General Chief Complaint: Shortness of Breath/Dyspnea Stated Complaint: sob Time Seen by Provider: 12/26/22 17:59 Source: patient and old records reviewed Mode of arrival: ambulatory Limitations: no limitations History of Present Illness HPI Narrative: Patient is a 77 y/o male who presents to the ED with c/o shortness of breath. Patient reports having intermittent shortness of breath for the last 3 to 4 months. He states he only notices this shortness of breath when doing activities that involve him using his arms, such as sweeping or trimming trees. He states he walks 3 miles every morning and does not ever feel short of breath with this activity. He does not ever have to stop to catch his breath, or feel winded after walking. He has not had to change this activity over the last 3 to 4 months. He states he really only just notices it when using his arms. He went to his primary care doctor's office today and was referred here for further evaluation. Patient denies any other symptoms. Denies history of coronary disease or heart failure. Denies weakness, numbness, chest pain, palpitations, swelling of extremities, pain in lower extremities, pain with taking deep breath, abdominal pain, nausea, vomiting. Related Data Allergies Allergy/AdvReac Type Severity Reaction Status Date / Time No Known Allergies Allergy Verified 12/26/22 17:46 Review of Systems Review of Systems: CONSTITUTIONAL: Denies fever, chills, or sweats. CARDIOVASCULAR: Denies chest pain, palpitations, or edema. RESPIRATORY: See HPI. GASTROINTESTINAL: Denies abdominal pain, nausea, vomiting, or diarrhea. MUSCULOSKELETAL: See HPI. NEUROLOGIC: Denies headache, numbness, or weakness. All systems reviewed & are unremarkable except as noted in HPI and below PMFSH Past Medical History Medical History Benign prostatic hyperplasia Hyperlipidemia Hypertension Prostate cancer (~2007) Type 2 diabetes mellitus Hemoglobin was 6 0.4% on 04/11/2020. Surgical History Surgical History History of prostatectomy (~2007) Family History Family History Father Coronary artery disease Social History Social History Social History: The patient lives in [place], [place]. He tells me he lives with his children. Retired from working for the [employer] for 41 years. Lifelong nonsmoker. No alcohol or illicit substance use. His daughter Мария Medina is his healthcare power of workers compensation defense attorney and he is listed as a full code. Smoking status: Never smoker Second hand tobacco smoke exposure: No Alcohol intake: never Substance use: never Lack of Transportation: No Lack of Food: Never True Current Housing: I Have Housing Concerned About Future Housing: No Difficulty Paying Gas/Electric Bills: No Difficulty Paying for Meds: No Currently Unemployed: No Education: High School Diploma/GED Difficulty w/ Childcare or Family Care: No Gender identity (if verbalized by the patient): Male Spiritual care concerns: No Exam Narrative: GENERAL: Well appearing, well-nourished, non-toxic, in no acute distress. HEAD: Normocephalic, atraumatic. NECK: Supple. No adenopathy, no masses. RESPIRATORY: Airway patent, respirations nonlabored. Clear to auscultation bilaterally, no rales, rhonchi, wheezing. No pleuritic pain. CARDIOVASCULAR: Regular rate and rhythm without murmurs, rubs, or gallops. Peripheral pulses 2+ and equal bilaterally. ABDOMINAL: Soft, nontender, nondistended, no hepatosplenomegaly. Normoactive BS. MUSCULOSKELETAL: Moves all extremities. Strength/ROM intact without gross deformities. No pain or tenderness to palpation throughout upper extremities bilaterally. No pain with range of motion of upper
[2022-12-26 19:30] VITALS: BP 167/94; PULSE 68; RESP 20; O2SAT 100
[2022-12-26 19:54] LABS: NT Pro B Type Natriuretic Pept 324 pg/mL (19.9-100); Troponin I < 0.012 ng/mL (0.000-0.034)
[2022-12-26 20:21] LABS: D Dimer 0.55 ug/mL (<0.48)
[2022-12-26 21:35] VITALS: BP 165/92; PULSE 62; RESP 20; O2SAT 100
== END 2022-12-26 21:35 | disposition home or self-care (01) ==
PROVIDERS: Emergency Medicine; Emergency Provider Physician Assistant; PCP Physician Assistant
DX: R06.02 Shortness of breath (principal); E78.5 Hyperlipidemia, unspecified; I10 Essential (primary) hypertension; E11.9 Type 2 diabetes mellitus without complications; N40.0 Benign prostatic hyperplasia without lower urinary tract symptoms; Z85.46 Personal history of malignant neoplasm of prostate; Z90.79 Acquired absence of other genital organ(s); Z79.82 Long term (current) use of aspirin; Z79.84 Long term (current) use of oral hypoglycemic drugs; I45.10 Unspecified right bundle-branch block
CPT/HCPCS: 36415; 71046; 80053; 83880; 84484; 85025; 85380; 93005; 99284

== ENCOUNTER 2023-03-20 09:06 | Outpatient (CLI) | payer MEDICARE, SELFPAY ==
[2023-03-20 09:55] LABS: Basophils Absolute Auto 0.1 K/mm3 (0.0-0.1); Basophils Percent Auto 0.9 % (0.2-1.2); Eosinophils Absolute Auto 0.2 K/mm3 (0-0.3); Eosinophils Percent Auto 3.7 % (0-4.4); Hematocrit 47.8 % (42.0-52.0); Hemoglobin 15.5 g/dL (14.0-18.0); Immature Granulocyte Absolute 0.02 K/mm3 (0.00-0.031); Immature Granulocyte Percent A 0.3 % (0-0.5); Lymphocytes Absolute Auto 1.21 K/mm3 (0.9-3.2); Lymphocytes Percent Auto 20.6 % (18.3-44.2); Mean Corpuscular HGB Conc 32.4 g/dl (32-36); Mean Corpuscular Hemoglobin 30.4 pg (26-34); Mean Corpuscular Volume 93.7 fl (80-100); Mean Platelet Volume 11.1 fl (7.4-10.4); Monocytes Absolute Auto 0.5 K/mm3 (0.1-0.6); Monocytes Percent Auto 7.7 % (2.6-8.5); Neutrophils Absolute Auto 3.9 K/mm3 (1.3-6.7); Neutrophils Percent Auto 66.8 % (45.5-73.1); Platelet Count Result 216 k/mm3 (150-375); White Blood Count 5.9 K/mm3 (4.5-10.0)
[2023-03-20 10:15] LABS: Alanine Aminotransferase 20 U/L (6-50); Albumin Level 4.6 g/dL (3.5-5.1); Alkaline Phosphatase 105 U/L (38-126); Anion Gap 11 mmol/L (8-16); Aspartate Amino Transferase 24 U/L (17-59); Bilirubin,Total 1.3 mg/dL (0.2-1.3); Blood Urea Nitrogen 28 mg/dL (9-20); Calcium 9.8 mg/dL (8.4-10.2); Carbon Dioxide 25 mmol/L (22-30); Chloride 105 mmol/L (98-107); Cholesterol 213 mg/dL (0-200); Estimated Glomerular Filt Rate 49; Glucose 131 mg/dL (65-110); HDL Direct 68 mg/dL; Potassium 4.9 mmol/L (3.4-5.0); Sodium 141 mmol/L (137-145); Triglycerides 112 mg/dL (<150)
[2023-03-20 10:26] LABS: LDL Cholesterol Direct 98 mg/dL
[2023-03-20 10:26] LABS: Creatinine Urine 132.4 mg/dL
[2023-03-20 10:30] LABS: MALB Creatinine Ratio 27.7 mg/g (0-30); Microalbumin Urine Random 36.7 mg/L (0-16.7)
[2023-03-20 10:44] LABS: Prostate Specific Antigen < 0.1 ng/mL (< OR = 4.0)
== END 2023-03-20 09:07 | disposition home or self-care (01) ==
PROVIDERS: PCP Physician Assistant; Visit Provider Physician Assistant
DX: E78.5 Hyperlipidemia, unspecified (principal); E11.9 Type 2 diabetes mellitus without complications; Z85.46 Personal history of malignant neoplasm of prostate; Z12.5 Encounter for screening for malignant neoplasm of prostate
CPT/HCPCS: 36415; 80053; 80061; 82043; 83036; 84153; 84443; 85025; G0103

== ENCOUNTER 2023-09-21 09:37 | Outpatient (CLI) | payer MEDICARE, SELFPAY ==
[2023-09-21 11:18] LABS: Alanine Aminotransferase 12 U/L (6-50); Albumin Level 4.8 g/dL (3.5-5.1); Alkaline Phosphatase 86 U/L (38-126); Anion Gap 10 mmol/L (4-12); Aspartate Amino Transferase 24 U/L (17-59); Bilirubin,Total 1.6 mg/dL (0.2-1.3); Blood Urea Nitrogen 32 mg/dL (9-20); Calcium 9.6 mg/dL (8.4-10.2); Carbon Dioxide 20 mmol/L (22-30); Chloride 112 mmol/L (98-107); Estimated Glomerular Filt Rate 45; Glucose 108 mg/dL (65-110); Potassium 4.5 mmol/L (3.4-5.0); Sodium 142 mmol/L (137-145)
[2023-09-21 13:59] LABS: Creatinine Urine 156.8 mg/dL
[2023-09-21 14:03] LABS: MALB Creatinine Ratio 15.4 mg/g (0-30); Microalbumin Urine Random 24.1 mg/L (0-16.7)
[2023-09-21 14:58] LABS: Hemoglobin A1C 5.7 % (<5.7)
== END 2023-09-21 09:38 | disposition home or self-care (01) ==
LOC: ANHLAB 09:41
PROVIDERS: PCP Physician Assistant; Visit Provider Physician Assistant
DX: E11.9 Type 2 diabetes mellitus without complications (principal)
CPT/HCPCS: 36415; 80053; 82043; 83036

== ENCOUNTER 2024-05-12 08:21 | Outpatient (CLI) | payer MEDICARE, SELFPAY ==
--- OUTSIDE RECORDS SUMMARY | 2024-05-12 08:34 | XMS_ITS | Encounter Summary ---
Author Organization [facility] Address [facility] [place] [address] [place] [address] Care Team Providers Care Grievance And Appeals Specialist Name Role Phone Blaine Stephens MD Primary Care Provider U Concha Styles NP Primary Care Provider Elmer Sandy NP Primary Care Provide r Nasir Soliman MD Primary Care Provider [phone] Encounter Details Date Type Department Care Team (Late st Contact Info) Description 09/15/2019 Prep for Procedure [facility] [address] [place], [place] [id number] Amadou Art MD [address] [facility] [address] [place] [address] Social History Tobacco Use Types Packs/Day Years Used Date Smoking Tobacco: Never Smokeless Tobacco: Never Alcohol Use Standard Drinks/Week Comments Yes 0 (1 standard drink = 0.6 oz pur e alcohol) couple a month AUDIT-C Answer Date Recorded Frequency of Alcohol Consumption Monthly or less 02/25/2018 Average Number of Drinks Not on file 018 Frequency of Binge Drinking Never 02/14 PHQ-2 Answer Date Recorded PHQ-2 Score 0 08/26/2018 Education Answer Date Recorded What is the highest level of school you have completed or the highest degree you have received? Some college, no degree 02/25/2018 Sex and Gender Information Value Date Recorded Sex Assigned at Male 02/25/2018 9:28 AM YOUTH MINISTER Legal Sex Male 8:27 PM CDT Gender Identity Male 02/25/2018 9:28 AM YOUTH MINISTER Sexual Orientation Not on file COVID-19 Exposure Response Date Recorded In the last month, have you been in contact with someone who was confirmed or suspected to have Coronavirus / COVID-19? No / Unsure 08/27/2019 8:29 AM CDT documented as of this encounter Plan of Treatment Not on file documented as of this encounter Results * PRE-SURGICAL/PRE-PROCEDURE CORONAVIRUS (COVID 19) (09/19/2019 8:48 AM CDT) CORONAVIRUS SARS COV 2 PCR (RESP) NOT DETECTED NOT DETECTED 09/20/2019 1:55 PM CDT Medication Review [facility] Comment: A Not Detected (negative) test result for this test means that SARS- CoV-2 RNA was not present in the specimen above the limit of detection. A negative result does not rule out the possibility of COVID-19 and should not be used as the sole basis for treatment or patient management decisions. ??If COVID-19 is still suspected, based on exposure history together with other clinical findings, re-testing should be considered in consultation with public health authorities. Laboratory test results should always be considered in the context of clinical observations and epidemiological data in making a final diagnosis and patient management decisions. Please review the Fact Sheets and FDA authorized labeling available for health care providers and patients using the following websites: https://www.[employer].com/home/Covid-19/HCP/[facility]/fact- sheet.html https://www.[employer]/home/Covid-19/Patients/ Quest[employer]D/fact-sheet.html This test has been authorized by the FDA under an Emergency Use Authorization (EUA) for use by authorized laboratories. Due to the current public health emergency, [facility] is receiving a high volume of samples from a wide variety of swabs and media for COVID-19 testing. In order to serve patients during this public health crisis, samples from appropriate clinical sources are being tested. Negative test results derived from specimens received in non-commercially manufactured viral collection and transport media, or in media and sample collection kits not yet authorized by FDA for COVID-19 testing should be cautiously evaluated and the patient potentially subjected to extra precautions such as additional clinical monitoring, including collection of an additional specimen. Methodology: ??Nucleic Acid Amplification Test (NAAT) includes PCR or TMA Additional information about COVID-19 can be found at the [facility] website: www.[facility].[employer]/Covid19. Test performed at [facility] [address] [place], [place] ??[address] Director: VIANCA GONZALEZ DO,MPH NASOPHARYNGEAL SWAB / Unknown 09/19/2019 8:48 AM CDT us Amadou Art MD MICROBIOLOGY - GENERAL ORDERAB LES Final Result Medication Review [facility] [id number] [place] [address], documented in this encounter Visit Diagnoses Diagnosis Pre-op testing- Primary Preoperative examination, unspecified documented in this encounter Additional Health Concerns Infection Onset Date Last Indicated Resolved Time COVID-19 Rule Out 09/19/2019 09/19/2019 09/20/2019 1:55 PM CDT documented as of this encounter Care Teams Grievance And Appeals Specialist Relationship Specialty Start Date End Date Blaine Stephens MD PCP - General INTERNAL MEDICINE 01/23/18 07/20/22 [place] [address] [address], [address] [place] [address] PCP - General Nurse Practitioner Family 07/21/2206/21 [place] [address] [address], [address] [place] [address] PCP - General NURSE PRACTITIONER ADULT HEALTH 06/23/23 11/05/23 [place] [address] [place] [address] PCP - General INTERNAL MEDICINE 11/06/23 documented as of this encounter
--- OUTSIDE RECORDS SUMMARY | 2024-05-12 08:34 | XMS_ITS | Clinical Summary ---
Author Organization [facility] Address [facility] [place] [address] [place] [address] Care Team Providers Care Aerobics Teacher Name Role Phone Nasir Soliman MD Primary Care Provider [phone] Allergies No known active allergies Medications aspirin (ASPIRIN LOW DOSE) 81 MG tablet Take 81 mg by mouth daily. 5 Active Cholecalciferol (VITAMIN D) 50 MCG (1999) Tab Take 1 tablet by mouth daily. Active ATORVASTATIN 20 MG tabletIndications:M ixed hyperlipidemia TAKE 1 TABLET BY MOUTH EVERYDAY AT BEDTIME 90 tablet 1 1 Active terazosin 5 MG capsule Take 1 capsule by mouth daily. 1 Active METFORMIN ER 500 MG 24 hr tabletIndications:T ype 2 diabetes mellitus without complication, without long-term current use of insulin ([facility]) TAKE 1 TABLET BY MOUTH THREE TIMES A DAY WITH MEALS 270 tablet 2 Active Active Problems Problem Noted Date Diagnosed Date Paresthesias 01/27/2021 History of radical prostatectomy 07/29/2020 COVID-19 04/30/2020 BMI 26.0-26.9,adult 06/03/2019 Age-related cataract of both eyes 06/03/2019 Basal cell carcinoma of skin 08/15/2016 Diabetes mellitus ([facility]) 12/01/2015 Enlarged prostate with lower urinary tract sympt oms (LUTS) 12/01/2015 Bilateral carotid artery disease 08/31/2015 CAD in [place] artery 08/31/2015 Mixed hyperlipidemia 08/31/2015 Benign hypertension 08/31/2015 Resolved Problems Problem Noted Date Diagnosed Date Resolved Date Need for immunization against influenza 02/26/2019 01/31/2021 Xiphoid prominence 12/06/2016 9 Immunizations Name Administration Dates Next Due Fluzone High Dose - >Age 65 (Prefilled Syringe) 01/27/2021,01/13/2020,01/17/2019 Influenza Adult (Generic) 01/14/2018,01/21/2016 SAMANTHA (JANE & JANE) COVID-19 AD26 VACCINE 0.5 ML IM SUSP 06/28/2020 Pneumococcal (Pneumovax 23) 02/26/2019, 9 Pneumococcal (Prevnar 13) 02/02/2016 Tdap (Generic) 03/02/2016 Family History Medical History Relation Comments Kidney Disease Father old age Mother Relation Status Comments Father Mother Social History Tobacco Use Types Packs/Day Years Used Date Smoking Tobacco: Never Smokeless Tobacco: Never Tobacco Cessation:Counseling Given: No Alcohol Use Standard Drinks/Week Comments Yes 0 (1 standard drink = 0.6 oz pur e alcohol) couple a month AUDIT-C Answer Date Recorded Frequency of Alcohol Consumption Monthly or less 02/25/2018 Average Number of Drinks Not on file Frequency of Binge Drinking Never 02/14 PHQ-2 Answer Date Recorded PHQ-2 Score - If the patient scores above 3, please move on to questions 3-9 0 10/07/2020 Education Answer Date Recorded What is the highest level of school you have completed or the highest degree you have received? Some college, no degree 02/25/2018 Sex and Gender Information Value Date Recorded Sex Assigned at Male 02/25/2018 9:28 AM PROFESSOR OF COMMUNICATION Legal Sex Male 8:27 PM CDT Gender Identity Male 02/25/2018 9:28 AM PROFESSOR OF COMMUNICATION Sexual Orientation Not on file Last Filed Vital Signs Vital Sign Reading Time Taken Comments Blood Pressure 118/82 01/27/2021 8:20 AM CDT Pulse 83 01/27/2021 8:20 AM CDT Temperature 36.6 ??C (97.9 ??F) 01/27/2021 8:20 AM CD T Respiratory Rate 18 01/27/2021 8:20 AM CDT Oxygen Saturation 98% 01/27/2021 8:20 AM CDT Inhaled Oxygen Concentration - - Weight 84.9 kg (187 lb 3.2 oz) 01/27/2021 8:20 A M CDT Height 180.3 cm (5' 11 ) 01/27/2021 8:20 AM CDT Body Mass Index 26.11 01/27/2021 8:20 AM CDT Plan of Treatment Health Maintenance Due Date Last Done Comments ASCVD Statin 1945 Kidney Health Evaluation 1945 Zoster Vaccines (1 of 2) 06/16/1993 RSV Immunization or 60+ Years (1 - 1-dose 75+ series) 06/16/2018 ASCVD LDL 07/20/2021 07/20/2020, 06/2019, 02/17/2019, Additional history exists Lipid Panel 07/20/2021 07/20/2020, 06/2019, 02/17/2019, Additional history exists Hemoglobin A1C 07/28/2021 01/27/2021, 07/15, 12/18/2019, Additional history exists Annual Medicare Wellness Visit 10/08/2021 10/07/2020 Diabetes: Retinopathy Eye Exam 09/21/2022 09/21/2020, 07/17/2017 COVID-19 Vaccine ( season) 2023 06/28/2020 Influenza Adult (#1) 2024 01/27/2021, 01/13/2020, 01/17/2019, Additional history exists DTaP, Tdap and Td Vaccines (2 - Td or Tdap) 03/02/2026 03/02/2016 Pneumococcal Vaccine: 65+ Years Completed 02/26/2019, 02/02/2016, 01/15/2009 Meningococcal B Vaccine Aged Out No l onger eligible based on patient's age to complete this topic Meningococcal Vaccine Aged Out No david marybel eligible based on patient's age to complete this topic RSV Immunizations Under 20 Months Aged Out No longer eligible based on patient's age to complete this topic Medical Devices Implanted Type Area Street Vendor Device Identifier Shelf Expiration Date Model / Serial / Lot Iol [employer] Zcboo - [id number] Implanted:Qty: 1 on 09/22/2019 by Amadou Art MD at [facility] Lens Left: Eye [employer] 09/03/2020 [id number] / [id number] / Procedures Procedure Name Priority Date/Time Associated Diagnosis Comments HEMOGLOBIN, GLYCOSYLATED Routine 01/27/2021 Type 2 diabetes mellitus without complication, without long-term current use of insulin ([facility]) DIABETIC RETINOPATHY EXAM (NEGATIVE)(SCAN ORDER) Routine 09/21/2020 LIPID PANEL Routine 07/20/2020 10:17 AM CDT Mixed hyperlipidemia from Last 3 Months or Most Recently Relevant to Health Maintenance Results * HEMOGLOBIN, GLYCOSYLATED (01/27/2021) HGB A1C 6.0 % [id number] [facility] 01/27/2021 Blaine Stephens MD LABORATORY Final Re sult Performing Organization Address [facility]/ZIP Co de Phone Number [phone] [facility] [address] [place] [address], * DIABETIC RETINOPATHY EXAM (NEGATIVE)(SCAN) (09/21/2020) us Documents Scanned SCANNING Final Result Performing Organization Address City/[facility]/ZIP Co de Phone Number [facility] * LIPID PANEL (07/20/2020 10:17 AM CDT) CHOLESTEROL 176 <200.0 MG/DL 07/20/2020 2:57 PM CDT [facility] TRIGLYCERIDES 62 <150 MG/DL 07/20/2020 2:57 PM CDT [facility] HDL 84 >40.0 MG/DL 07/20/2020 2:57 PM CDT [facility] LDL (CALCULATED) 80 <100 MG/DL 07/21/19 2:57 PM CDT [facility] NON HDL CHOLESTEROL 92 <130 MG/DL 07/20 2:57 PM CDT [facility] CHOL/HDL RATIO 2.1 0.0 - 4.5 07/20/2020 2:57 PM CDT [facility] VLDL CALCULATION 12 5 - 55 MG/DL 07/20/2020 2:57 PM CDT [facility] LIPID INTERPRETATION 07/20/2020 2:57 PM CDT [facility] Comment: NIH CONCENSUS REPORT RECOMMENDATIONS: ?ADULT ?CHILD ??LOW RISK: ?CHOLESTEROL ? <200 ? <170 ?TRIGLYCERIDE ?<150 ?--- ?HDL ? >=60 ?--- ?LDL ? <100 ? <110 ??BORDERLINE: ?CHOLESTEROL ? 200-239 ?? 170-199 ?TRIGLYCERIDE ?150-199 ? --- ?HDL ?40-59 ?--- ?LDL ? 100-159 ?? 110-129 ??HIGH RISK: ?CHOLESTEROL ? >=240 ?>=200 ?TRIGLYCERIDE ?>=200 ? --- ?HDL ?<40 ?--- ?LDL ? >=160 ?>=130 07/20/2020 10:1 7 AM CDT Blaine Stephens MD LABORATORY Final Re sult [facility] [address] [place] [address], from Last 3 Months or Most Recently Relevant to Health Maintenance Insurance MEDICARE [facility] Care Teams Aerobics Teacher Relationship Specialty [place] [address] [place] [address] PCP - General INTERNAL MEDICINE 11/06/23
--- OUTSIDE RECORDS SUMMARY | 2024-05-12 08:34 | XMS_ITS | Encounter Summary ---
Author Organization [facility] Address [address] [place] [address]. [place] [address] [place] [address] Care Team Providers Care Cottage Cheese Maker Name Role Phone Blaine Stephens MD Primary Care Provider U Concha Styles NP Primary Care Provider [phone] Elmer Sandy NP Primary Care Provide r Nasir Soliman MD Primary Care Provider [phone] Encounter Details Date Type Department Care Team (Late st Contact Info) Description 02/23/2018 Abstract [facility] Family & Internal Medicine [address] [address] Blaine Stephens MD Social History Tobacco Use Types Packs/Day Years Used Date Smoking Tobacco: Never Smokeless Tobacco: Never Alcohol Use Standard Drinks/Week Comments No 0 (1 standard drink = 0.6 oz pur e alcohol) AUDIT-C Answer Date Recorded Frequency of Alcohol Consumption Monthly or less 02/25/2018 Average Number of Drinks Not on file 018 Frequency of Binge Drinking Never 02/14 Sex and Gender Information Value Date Recorded Sex Assigned at Male 02/25/2018 9:28 AM MOUSE BREEDER Legal Sex Male 8:27 PM CDT Gender Identity Male 02/25/2018 9:28 AM MOUSE BREEDER Sexual Orientation Not on file documented as of this encounter Plan of Treatment Not on file documented as of this encounter Visit Diagnoses Not on filedocumented in this encounter Additional Health Concerns Infection Onset Date Last Indicated Resolved Time COVID-19 Rule Out 09/19/2019 09/19/2019 09/20/2019 1:55 PM CDT documented as of this encounter Care Teams Cottage Cheese Maker Relationship Specialty Start Date End Date Blaine Stephens MD PCP - General INTERNAL MEDICINE 01/23/18 07/20/22 [place] [address] [address], [address] [place] [address] PCP - General Nurse Practitioner [facility] 07/21/2206/21 [place] [address] [address], [address] [place] [address] PCP - General NURSE PRACTITIONER [facility] 06/23/23 11/05/23 [place] [address] [address] [place], [place] [id number] PCP - General INTERNAL MEDICINE 11/06/23 documented as of this encounter
[2024-05-12 09:08] LABS: Hematocrit 44.5 % (42.0-52.0); Hemoglobin 14.7 g/dL (14.0-18.0); Mean Corpuscular Hemoglobin 30.5 pg (26-34); Mean Corpuscular Volume 92.3 fl (80-100); Platelet Count Result 260 k/mm3 (150-375); Red Blood Count 4.82 M/mm3 (4.6-6.20); Red Cell Distribution Width 13.5 % (11.5-14.5); White Blood Count 6.1 K/mm3 (4.5-10.0)
[2024-05-12 09:20] LABS: Alanine Aminotransferase 19 U/L (6-50); Alkaline Phosphatase 89 U/L (38-126); Anion Gap 8 mmol/L (4-12); Aspartate Amino Transferase 27 U/L (17-59); Bilirubin,Total 1.3 mg/dL (0.2-1.3); Blood Urea Nitrogen 25 mg/dL (9-20); Calcium 9.3 mg/dL (8.4-10.2); Carbon Dioxide 24 mmol/L (22-30); Chloride 107 mmol/L (98-107); Cholesterol 245 mg/dL (0-200); Estimated Glomerular Filt Rate 55; Glucose 114 mg/dL (65-110); HDL Direct 57 mg/dL; Potassium 4.6 mmol/L (3.4-5.0); Sodium 139 mmol/L (137-145); Triglycerides 137 mg/dL (<150)
[2024-05-12 09:30] LABS: LDL Cholesterol Direct 144 mg/dL
[2024-05-12 09:50] LABS: Prostate Specific Antigen < 0.1 ng/mL (< OR = 4.0)
[2024-05-12 11:36] LABS: Hemoglobin A1C 6.3 % (<5.7)
== END 2024-05-12 08:22 | disposition home or self-care (01) ==
PROVIDERS: PCP Internal Medicine; Visit Provider Internal Medicine
DX: E78.5 Hyperlipidemia, unspecified (principal); E11.9 Type 2 diabetes mellitus without complications; Z13.29 Encounter for screening for other suspected endocrine disorder; Z85.46 Personal history of malignant neoplasm of prostate
CPT/HCPCS: 36415; 80053; 80061; 83036; 84153; 84443; 85027

== ENCOUNTER 2024-11-13 07:17 | Outpatient (CLI) | payer MEDICARE, SELFPAY ==
--- OUTSIDE RECORDS SUMMARY | 2024-11-13 07:20 | XMS_ITS | Encounter Summary ---
Author Organization [facility] Address [address] [place] [address] Care Team Providers Care Electronic Equipment Set Up Operator Name Role Phone Blaine Stephens MD Primary Care Provider U Concha Styles NP Primary Care Provider Elmer Sandy BIRD TENDER Primary Care Provide r Nasir Soliman MD Primary Care Provider [phone] Encounter Details Date Type Department Care Team (Late st Contact Info) Description 02/23/2018 Abstract [facility] Family & Internal Medicine [address] [address] Blaine Stephens MD Social History [...] Sex Assigned at Male 02/25/2018 9:28 AM CIVIL LABORATORY TECHNICIAN Legal Sex Male 8:27 PM CDT Gender Identity Male 02/25/2018 9:28 AM CIVIL LABORATORY TECHNICIAN Sexual Orientation Not on file documented as of this encounter Functional Status documented as of this encounter Plan of Treatment Not on file documented as of this encounter Visit Diagnoses Not on filedocumented in this encounter Additional Health Concerns Infection Onset Date Last Indicated Resolved Time COVID-19 Rule Out 09/19/2019 09/19/2019 09/20/2019 1:55 PM CDT documented as of this encounter Care Teams Electronic Equipment Set Up Operator Relationship Specialty Start Date End Date Blaine Stephens MD PCP - General INTERNAL MEDICINE 01/23/18 07/20/22 [place] [address] [place] [address] PCP - General Nurse Practitioner [facility] 07/21/2206/21 [place] [address] [address] [place] [address] PCP - General NURSE PRACTITIONER [facility] 06/23/23 11/05/23 [place] [address] [place] [address] PCP - General INTERNAL MEDICINE 11/06/23 documented as of this encounter
--- OUTSIDE RECORDS SUMMARY | 2024-11-13 07:20 | XMS_ITS | Encounter Summary ---
Author Organization [facility] Address [address] [place] [address] Care Team Providers Care Regional Psychiatric Director Name Role Phone Blaine Stephens MD Primary Care Provider U Concha Styles NP Primary Care Provider [phone] Elmer Sandy RETAIL RECEIVING CLERK Primary Care Provide r Nasir Soliman MD Primary Care Provider [phone] Encounter Details Date Type Department Care Team (Late st Contact Info) Description 09/15/2019 Prep for Procedure [facility] [address] [place] [address] Amadou Art MD [address] [facility] [address] [address] Social History Tobacco Use Types Packs/Day [...] Sex Assigned at Male 02/25/2018 9:28 AM SPAR CAP BEVELER Legal Sex Male 8:27 PM CDT Gender Identity Male 02/25/2018 9:28 AM SPAR CAP BEVELER Sexual Orientation Not on file COVID-19 Exposure [...] DETECTED NOT DETECTED 09/20/2019 1:55 PM CDT [email or web address] Comment: A Not Detected (negative) test result for this test means that SARS- CoV-2 RNA was not present in the specimen above the limit of detection. A negative result does not rule out the possibility of COVID-19 and should not be used as the sole basis for treatment or patient management decisions. If COVID-19 is still suspected, based on exposure [...] providers and patients using the following websites: https://www.Tapingo.com/home/Covid-19/HCP/QuestIVD/fact- sheet.html https://www.[employer].Citygoo/home/Covid-19/Patients/ QuestIVD/fact-sheet.html This test has been authorized by the FDA under an Emergency Use Authorization (EUA) for use by authorized laboratories. Due to the current public health emergency, [facility] is receiving a high volume of samples [...] including collection of an additional specimen. Methodology: Nucleic Acid Amplification Test (NAAT) includes PCR or TMA Additional information about COVID-19 can be found at the [facility] website: www.[employer] Color [employer].Citygoo/Covid19. Test performed at [email or web address] [place] [address] [address] Director: VIANCA GONZALEZ DO,MPH NASOPHARYNGEAL SWAB / Unknown 09/19/2019 8:48 AM CDT us Amadou Art MD MICROBIOLOGY - GENERAL ORDERAB LES Final Result [email or web address] [address] [place], [place] [address] documented in this encounter Visit Diagnoses Diagnosis Pre-op testing- Primary Preoperative examination, unspecified documented in this encounter Additional Health Concerns Infection Onset Date Last Indicated Resolved Time COVID-19 Rule Out 09/19/2019 09/19/2019 09/20/2019 1:55 PM CDT documented as of this encounter Care Teams Regional Psychiatric Director Relationship Specialty Start Date End Date Blaine Stephens MD PCP - General INTERNAL MEDICINE 01/23/18 07/20/22 [place] [address] [address] [place] [address] PCP - General Nurse Practitioner [facility] 07/21/2206/21 [place] [address] [place] [address] PCP - General [facility]SE PRACTITIONER [facility] 06/23/23 11/05/23 [place] [address] [place] [address] PCP - General INTERNAL MEDICINE 11/06/23 documented as of this encounter
--- OUTSIDE RECORDS SUMMARY | 2024-11-13 07:20 | XMS_ITS | Patient Health Record ---
Author Organization [facility] Address [address] [address] Care Team Providers Care Steel Sash Erector Name Role Phone Maximino Adams Primary Care Provider Wyatt Dahl MD, [facility] [phone] Allergies Allergen (clinical drug ingredient) Drug/Non Drug Allergy documented on EMR Reaction Allergy Type Onset Date Status atenolol Atenolol bradycardia Drug Allergy Activ e Reason For Referral No Information Medications Medication SIG (Take, Route, Frequency, Duration) Notes Start Date End Date Status Imipramine HCl 50 MG 1 tablet at bedtime Orally Active Crestor 5 MG 1 tablet Orally Once a day Active Losartan Potassium 25 MG 1 tablet Orally Once a day Active Problems Problem Type SNOMED Code ICD Code Onset Dates Problem Status W/U Status Risk Notes Problem Malignant neoplasm of prostate (361112186) Malignant neoplasm of prostate (185) Active confirmed Problem Hyperlipidemia (45521067) Other and unspecified hyperlipidemia (272.4) Active confirmed Problem Essential hypertension (62144659) Unspecified essential hypertension (401.9) Active confirmed The blood pressure is on the low side. Additionally, the patient has occasional dizziness, suggesting the control is too tight. I suggested he decrease the Losartan to 25 mg per day. Problem Chronic kidney disease stage 1 (363322822) Chronic kidney disease, Stage I (585.1) Active confirmed Problem Chronic kidney disease stage 2 (051814918) Chronic kidney disease, Stage II (mild) (585.2) Active confirmed The pattern I see on the blood tests of mild azotemia with some fluctuation and mild hyperkalemia suggest an ARB effect of the Losartan. The fact that the blood pressure runs on the low side with occasional symptoms of dizziness suggests that this in fact the case. Under the circumstances , the patient may indeed have normal renal function. With that said, his renal prognosis remains excellent. Problem Chronic kidney disease stage 3 (disorder) (393894147) Chronic kidney disease, Stage III (moderate) (585.3) Active confirmed Problem Hypertensive renal disease (68066572) Hypertensive chronic kidney disease, unspecified, with chronic kidney disease stage I through stage IV, or unspecified (403.90) Active confirmed Plan Of Treatment No Information Insurance Providers Payer Name Payer Address Payer Phone Subscriber Number Group Number Insured Name Patient Relationship to Insured Coverage Start Date Coverage End Date MEDICARE PART B [address] [address] [place], [place] [id number] Tucker Rosado Self - patient is the insured [facility] [address] [place] [address] [id number] Tucker Rosado Self - patient is the insured Medical (General) History Medical History History ICD Code HTN Hyperlipidemia Prediabetes CKD III Prostate cancer Obstructive voiding syndrome Surgical History Surgery Date(Month/Year) Resection of prostate 12/2006 Open prostatectomy 01/2008
--- OUTSIDE RECORDS SUMMARY | 2024-11-13 07:20 | XMS_ITS | Clinical Summary ---
Author Organization [facility] Address [address] [place] [address] Care Team Providers Care Ux Interaction Designer Name Role Phone Nasir Soliman MD Primary Care Provider [phone] Allergies No known active allergies Medications aspirin [...] complication, without long-term current use of insulin ([facility] [place] [facility]) TAKE 1 TABLET BY MOUTH THREE TIMES A DAY WITH MEALS 270 tablet 2 Active Active Problems Problem Noted Date Diagnosed Date Paresthesias 01/27/2021 History of radical prostatectomy 07/29/2020 COVID-19 04/30/2020 BMI 26.0-26.9,adult 06/03/2019 Age-related cataract of both eyes 06/03/2019 Basal cell carcinoma of skin 08/15/2016 Diabetes mellitus ([facility]) 12/01/2015 Enlarged prostate with lower urinary tract sympt oms (LUTS) 12/01/2015 Bilateral carotid artery disease 08/31/2015 CAD in [place] artery 08/31/2015 Mixed hyperlipidemia 08/31/2015 Benign hypertension 08/31/2015 Resolved Problems Problem Noted Date Diagnosed Date Resolved Date Need for immunization against influenza 02/26/2019 01/31/2021 Xiphoid prominence 12/06/2016 9 Immunizations Immunization Administration Dates Next Due Fluzone High Dose [...] Sex Assigned at Male 02/25/2018 9:28 AM LEAD PROJECT ENGINEER Legal Sex Male 8:27 PM CDT Gender Identity Male 02/25/2018 9:28 AM LEAD PROJECT ENGINEER Sexual Orientation Not on file Last Filed Vital Signs Vital Sign Reading Time Taken Comments Blood Pressure 118/82 01/27/2021 8:20 AM CDT Pulse 83 01/27/2021 8:20 AM CDT Temperature 36.6 C (97.9 F) 01/27/2021 8:20 AM CDT Respiratory Rate 18 01/27/2021 8:20 AM CDT Oxygen Saturation 98% 01/27/2021 8:20 AM CDT Inhaled Oxygen Concentration - - Weight 84.9 kg (187 lb 3.2 oz) 01/27/2021 8:20 A M CDT Height 180.3 cm (5' 11) 01/27/2021 8:20 AM CDT Body Mass Index 26.11 01/27/2021 8:20 AM CDT Plan of Treatment Health Maintenance Due Date Last Done Comments ASCVD Statin 1945 Kidney Health Evaluation 1945 Zoster Vaccines (1 of 2) 06/16/1993 RSV Immunization or 60+ Years (1 - 1-dose 75+ series) 06/16/2018 ASCVD LDL 07/20/2021 07/20/2020, 06/2019, 02/17/2019, Additional history exists Lipid Panel 07/20/2021 07/20/2020, 0 06/2019, 02/17/2019, Additional history exists Hemoglobin A1C 07/28/2021 01/27/2021, 07/15, 12/18/2019, Additional history exists Annual Medicare Wellness Visit 10/08/2021 10/07/2020 Diabetes: Retinopathy Eye Exam 09/21/2022 09/21/2020, 07/17/2017 COVID-19 Vaccine (2 - season) 2023 06/28/2020 DTaP, Tdap and Td Vaccines (2 - Td or Tdap) 03/02/2026 03/02/2016 Pneumococcal Vaccine: 50+ Years Completed 02/26/2019, 02/02/2016, 01/15/2009 Meningococcal B Vaccine Aged Out No l onger eligible based on patient's age to complete this topic Meningococcal Vaccine Aged Out No david marybel eligible based on patient's age to complete this topic RSV Immunizations Under 20 Months Aged Out No longer eligible based on patient's age to complete this topic Medical Devices Implanted Type Area Division Traffic Superintendent Device Identifier Shelf Expiration Date Model / Serial / Lot Iol [employer] Zcboo - [id number] Implanted:Qty: 1 on 09/22/2019 by Amadou Art MD at [facility] Lens Left: Eye [employer] 09/03/2020 [id number] / [id number] / Procedures Procedure Name Priority Date/Time Associated Diagnosis Comments HEMOGLOBIN, GLYCOSYLATED Routine 01/27/2021 Type 2 diabetes mellitus without complication, without long-term current use of insulin DIABETIC RETINOPATHY EXAM (NEGATIVE)(SCAN ORDER) Routine 09/21/2020 LIPID PANEL Routine 07/20/2020 10:17 AM CDT Mixed hyperlipidemia from Last 3 Months or Most Recently Relevant to Health Maintenance Results * HEMOGLOBIN, GLYCOSYLATED (01/27/2021) HGB A1C 6.0 % -[id number] Dipti GALLARDO, [place] 01/27/2021 Blaine Stephens MD LABORATORY Final Re sult Performing Organization Address City/[facility]/ZIP Co de Phone Number -[phone] [place] [place], [place] [address] [place] [address], [place] [phone] * DIABETIC RETINOPATHY EXAM (NEGATIVE)(SCAN) (09/21/2020) us Documents Scanned SCANNING Final Result Performing Organization Address City/[facility]/ZIP Co de Phone Number [facility] ONBASE * LIPID PANEL (07/20/2020 10:17 AM CDT) CHOLESTEROL 176 <200.0 MG/DL 07/20/2020 2:57 PM CDT [facility] TRIGLYCERIDES 62 <150 MG/DL 07/20/2020 2:57 PM CDT [facility] HDL 84 >40.0 MG/DL 07/20/2020 2:57 PM CDT [facility] LDL (CALCULATED) 80 <100 MG/DL 07/21/19 21 2:57 PM CDT [facility] NON HDL CHOLESTEROL 92 <130 MG/DL 07/20 2:57 PM CDT [facility] CHOL/HDL RATIO 2.1 0.0 - 4.5 07/20/2020 2:57 PM CDT [facility] VLDL CALCULATION 12 5 - 55 MG/DL 07/20/2020 2:57 PM CDT [facility] LIPID INTERPRETATION 07/20/2020 2:57 PM CDT [facility] Comment: [facility] CONCENSUS REPORT RECOMMENDATIONS: ADULT CHILD LOW RISK: CHOLESTEROL <200 <170 TRIGLYCERIDE <150 --- HDL >=60 --- LDL <100 <110 BORDERLINE: CHOLESTEROL 200-239 170-199 TRIGLYCERIDE 150-199 --- HDL 40-59 --- LDL 100-159 110-129 HIGH RISK: CHOLESTEROL >=240 >=200 TRIGLYCERIDE >=200 --- HDL <40 --- LDL >=160 >=130 07/20/2020 10:1 7 AM CDT us Blaine Stephens MD LABORATORY Final Re sult [facility] [address] [place] [address], from Last 3 Months or Most Recently Relevant to Health Maintenance Insurance [place] [address] [place] [address] [place] [id number] [facility] Care Teams Ux Interaction Designer Relationship Specialty Start [place] [address] [address] PCP - General INTERNAL MEDICINE 11/06/23
--- OUTSIDE RECORDS SUMMARY | 2024-11-13 07:21 | XMS_ITS | Clinical Summary ---
Author Organization [facility] Address [address] [place] [address] Phone Care Team Providers Care Aniline Press Worker Name Role Phone Maximino Adams MD Primary Care Provider [phone] Allergies No known active allergies Medications aspirin (ECOTRIN EC) 81 mg Tablet, Delayed Release (E.C.) Take 1 Tablet (81 mg) by mouth daily. 90 Tablet 4 01/18/2015 Active metFORMIN (GLUCOPHAGE XR) 500 mg Extended Release 24 hour tablet Take 500 mg by mouth 3 times daily . Active atorvastatin (LIPITOR) 20 mg tablet Take 20 mg by mouth. 08/27/2019 Active terazosin (HYTRIN) 5 mg capsule Take 1 Capsule by mouth daily. 11/03/2020 Active Active Problems Patient Care Coordination No te Formatting of this note migh t be different from the original. Junior Media Buyer- Dr. Slick Jones (Dang) Problem Noted Date Diagnosed Date Bilateral carotid artery disease 08/31/2015 CAD in [place] artery 08/31/2015 Mixed hyperlipidemia 08/31/2015 Benign hypertension 08/31/2015 Resolved Problems Problem Noted Date Diagnosed Date Resolved Date Benign hypertensive heart an d kidney disease and ESRD 08/31/2015 08/31/2015 Social History Tobacco Use Types Packs/Day Years Used Date Smoking Tobacco: Never Smokeless Tobacco: Never Alcohol Use Standard Drinks/Week Comments No 0 (1 standard drink = 0.6 oz pur e alcohol) rarely Sex and Gender Information Value Date Recorded Sex Assigned at Not on file Legal Sex Male 9:06 AM CDT Gender Identity Not on file Sexual Orientation Not on file Last Filed Vital Signs Vital Sign Reading Time Taken Comments Blood Pressure 116/62 11/10/2020 10:45 AM CDT Pulse 80 11/10/2020 10:45 AM CDT Temperature 36.4 C (97.6 F) 11/05/2019 9:03 AM CDT Respiratory Rate - - Oxygen Saturation 98% 11/10/2020 10:45 AM CDT Inhaled Oxygen Concentration - - Weight 83.5 kg (184 lb) 11/10/2020 10:45 AM CDT Height 180.3 cm (5' 11) 11/10/2020 10:45 AM CDT Body Mass Index 25.66 11/10/2020 10:45 AM CDT Plan of Treatment Health Maintenance Due Date Last Done Comments DIABETES MICROALBUMIN ANNUAL SCREEN 06/16/1961 LDL CHOLESTEROL ANNUAL 06/16/1961 ZOSTER VACCINE (1 of 2) 06/16/1993 RSV VACCINE (60+ or ) (1 - 1-dose 75+ series) 06/16/2018 DIABETES ANNUAL FOOT EXAM 08/27/2018 08/27/2017 DIABETES HBA1C Q 6 MONTHS 03/04/20222021, 03/03/2021, 01/27/2021, Additional history exists DIABETES ANNUAL RETINAL EXAM 06/10/2022, 09/21/2020, 09/21/2020, Additional history exists INFLUENZA VACCINE (#1) 2024 DTAP/TDAP/TD VACCINES (2 - T d or Tdap) 03/02/2026 03/02/2016 PNEUMOCOCCAL VACCINE 50+ YEARS Completed 1 04/28/2018, 02/02/2016, 01/15/2009 Insurance MEDICARE PART A AND B [email or web address] BLUE ACCESS/TRUE [employer] PPO Care Teams Aniline Press Worker Relationship Specialty Start Date End Date Maximino Adams MD [address] [place] [address] PCP - General Family Practice 01/18/15
[2024-11-13 08:26] LABS: Alanine Aminotransferase 12 U/L (6-50); Albumin Level 4.4 g/dL (3.5-5.1); Alkaline Phosphatase 82 U/L (38-126); Anion Gap 11 mmol/L (4-12); Aspartate Amino Transferase 31 U/L (17-59); Bilirubin,Total 1.9 mg/dL (0.2-1.3); Blood Urea Nitrogen 27 mg/dL (9-20); Calcium 9.7 mg/dL (8.4-10.2); Carbon Dioxide 22 mmol/L (22-30); Chloride 108 mmol/L (98-107); Cholesterol 257 mg/dL (0-200); Estimated Glomerular Filt Rate 51; Glucose 111 mg/dL (65-110); HDL Direct 52 mg/dL; Potassium 4.7 mmol/L (3.4-5.0); Sodium 141 mmol/L (137-145); Total Protein 7.9 g/dL (6.3-8.2); Triglycerides 163 mg/dL (<150)
[2024-11-13 08:34] LABS: Hemoglobin A1C 6.1 % (<5.7)
== END 2024-11-13 07:18 | disposition home or self-care (01) ==
PROVIDERS: PCP Internal Medicine; Visit Provider Internal Medicine
DX: E11.9 Type 2 diabetes mellitus without complications (principal); I10 Essential (primary) hypertension; E78.5 Hyperlipidemia, unspecified
CPT/HCPCS: 36415; 80053; 80061; 83036